=== PATIENT | male | born 1985 | race Two or more races ===

== ENCOUNTER 2017-10-05 06:24 | Observation (INO) | payer OTHER ==
[2017-10-05] MEDS ORDERED: NS 1,000 ML IV ONE (06:50)
[2017-10-05 07:04] LABS: ALANINE AMINOTRANSFERASE 49 IU/L (21-72); ALBUMIN 4.6 g/dL (3.5-5.0); ALKALINE PHOSPHATASE 57 IU/L (38-126); ANION GAP 14 mEq/L (8-16); ASPARTATE AMINOTRANSFERASE 24 IU/L (17-59); BILIRUBIN,TOTAL 1.3 mg/dL (0.1-1.4); BILIRUBIN-CONJUGATED 0.2 mg/dL (0.0-0.5); BILIRUBIN-UNCONJUGATED 1.1 mg/dL (0.0-1.1); CALCIUM 9.6 mg/dL (8.5-10.4); CARBON DIOXIDE 24 mEq/l (22-31); CHLORIDE 104 mEq/L (97-110); CREATININE 0.9 mg/dL (0.7-1.3); GLOMERULAR FILTRATION RATE > 60; GLUCOSE 99 mg/dL (70-100); POTASSIUM 3.9 mEq/L (3.5-5.2); SODIUM 142 mEq/L (134-144); TOTAL PROTEIN 7.1 g/dL (6.3-8.2)
[2017-10-05 07:05] LABS: % IMMATURE GRANULYOCYTES 0.3 % (0.0-1.1); ABSOLUTE IMMATURE GRANULOCYTES 0.04 10^3/uL (0.00-0.10); ADD DIFF? NO; ADD MORPH? NO; ADD SCAN? NO; ATYPICAL LYMPHOCYTE FLAG 0 (0-99); FRAGMENT RBC FLAG 0 (0-99); HEMATOCRIT 44.5 % (40.0-51.0); HEMOGLOBIN 16.1 g/dL (13.7-17.5); LEFT SHIFT FLG 0 (0-99); LIPEMIA HEMOLYSIS FLAG 90 (0-99); MEAN CELL HEMOGLOBIN 31.3 pg (27.9-34.1); MEAN CELL HEMOGLOBIN CONCENTR. 36.2 g/dL (32.4-36.7); MEAN CELL VOLUME 86.4 fL (81.5-99.8); MEAN PLATELET VOLUME 9.9 fL (8.7-11.7); PLATELET CLUMPS FLAG 10 (0-99); PLATELET COUNT 261 10^3/uL (150-400); RED BLOOD CELL COUNT 5.15 10^6/uL (4.40-6.38); RED CELL DISTRIBUTION WIDTH 12.1 % (11.5-15.2)
--- NOTE | 2017-10-05 07:07 | EDPHY ---
H & P Time Seen by Provider: 10/05/17 07:01 HPI/ROS: CHIEF COMPLAINT: Abdominal pain HPI: This patient is a healthy 32 y/o male complaining of abdominal pain onset last night about thirty minutes after eating chicken and rice. The discomfort feels like pressure and gas in his right and left lower quadrants, about the same on each side. He endorses occasional nausea, no vomiting or diarrhea. He has not urinated since the onset of his pain, aside from providing a small sample for UA. He denies any dysuria, hematuria, or difficulty with urination in the past. No fever. No history of abdominal surgery. REVIEW OF SYSTEMS: Aside from elements discussed in the HPI, a comprehensive 10-point review of systems was reviewed and is negative. PMH: Denies. SOCIAL HISTORY: PHYSICAL EXAM: General:Patient is alert, in no acute distress. ENT:Eyes are normal to inspection. ENT inspection normal. Neck: Normal inspection. Full range of motion. Respiratory:No respiratory distress. Breath sounds normal bilaterally. Cardiovascular: Regular rate and rhythm. Strong peripheral pulses. Normal cap refill. Abdomen:The abdomen is moderately distended with diffuse tenderness to palpation in both lower quadrants, worse at midline. There are no peritoneal signs. There are normal bowel sounds. Back: Normal to inspection. No tenderness to palpation. Skin: Normal color. No rash. Warm and dry. Extremities: Right leg is in orthopedic boot due to prior injury. Otherwise normal appearance. Full range of motion. Neuro: Oriented x3. Normal motor function. Normal sensory function. Portions of this note were transcribed by an ED scribe. I personally performed the history, physical exam, and medical decision making; and confirm the accuracy of the information in the transcribed note. Smoking Status: Never smoked Constitutional: Initial Vital Signs Temperature (C) 37 C 10/05/17 06:26 Heart Rate 83 10/05/17 06:26 Respiratory Rate 20 10/05/17 06:26 Blood Pressure 126/78 H 10/05/17 06:26 O2 Sat (%) 96 10/05/17 06:26 O2 Delivery Mode Room Air Allergies/Adverse Reactions: No Known Allergies Allergy (Unverified 10/05/17 06:26) Home Medications: Medication Instructions Recorded NK [No Known Home Meds] 10/05/17 Medical Decision Making Procedures: Limited pelvic ultrasound was conducted for abdominal pain and distension. The bladder was visualized and did not reveal an anechoic area outside of the adjacent urinary bladder. Bladder was distended with urine. The study was felt to be negative for free intraperitoneal fluid The procedure was performed by myself, Dr. Mccullough - Data Points Laboratory Results: Laboratory Results 10/05/17 06:40 10/05/17 06:40 10/05/17 10/05/17 06:40 06:40 WBC 14.97 10^3/uL H 10^3/uL (3.80-9.50) RBC 5.15 10^6/uL 10^6/uL (4.40-6.38) Hgb 16.1 g/dL g/dL (13.7-17.5) Hct 44.5 % % (40.0-51.0) MCV 86.4 fL fL (81.5-99.8) MCH 31.3 pg pg (27.9-34.1) MCHC 36.2 g/dL g/dL (32.4-36.7) RDW 12.1 % % (11.5-15.2) Plt Count 261 10^3/uL 10^3/uL (150-400) MPV 9.9 fL fL (8.7-11.7) Neut % (Auto) 76.5 % H % (39.3-74.2) Lymph % (Auto) 13.9 % L % (15.0-45.0) [place] % (Auto) 8.4 % % (4.5-13.0) Eos % (Auto) 0.6 % % (0.6-7.6) Baso % (Auto) 0.3 % % (0.3-1.7) Nucleat RBC Rel Count 0.0 % % (0.0-0.2) Absolute Neuts (auto) 11.47 10^3/uL H 10^3/uL (1.70-6.50) Absolute Lymphs (auto) 2.08 10^3/uL 10^3/uL (1.00-3.00) Absolute Monos (auto) 1.25 10^3/uL H 10^3/uL (0.30-0.80) Absolute Eos (auto) 0.09 10^3/uL 10^3/uL (0.03-0.40) Absolute Basos (auto) 0.04 10^3/uL 10^3/uL (0.02-0.10) Absolute Nucleated RBC 0.00 10^3/uL 10^3/uL (0-0.01) Immature Gran % 0.3 % % (0.0-1.1) Immature Gran # 0.04 10^3/uL 10^3/uL (0.00-0.10) Sodium 142 mEq/L mEq/L (134-144) Potassium 3.9 mEq/L mEq/L (3.5-5.2) Chloride 104 mEq/L mEq/L (97-110) Carbon Dioxide 24 mEq/l mEq/l (22-31) Anion Gap 14 mEq/L mEq/L (8-16) BUN 13 mg/dL mg/dL (7-23) Creatinine 0.9 mg/dL mg/dL (0.7-1.3) Estimated GFR > 60 Glucose 99 mg/dL mg/dL (70-100) Calcium 9.6 mg/dL mg/dL (8.5-10.4) Total Bilirubin 1.3 mg/dL mg/dL (0.1-1.4) Conjugated Bilirubin 0.2 mg/dL mg/dL (0.0-0.5) Unconjugated Bilirubin 1.1 mg/dL mg/dL (0.0-1.1) AST 24 IU/L IU/L (17-59) ALT 49 IU/L IU/L (21-72) Alkaline Phosphatase 57 IU/L IU/L (38-126) Total Protein 7.1 g/dL g/dL (6.3-8.2) Albumin 4.6 g/dL g/dL (3.5-5.0) Lipase 36 IU/L IU/L (23-300) Departure - Departure Referrals: NONE *PRIMARY CARE P,. [Primary Care Provider] - As per Instructions
--- NOTE | 2017-10-05 07:15 | EDPHY ---
HPI/HX/ROS/PE/MDM Narrative: CHIEF COMPLAINT: Abdominal pain HPI: This patient is a healthy 32 y/o male complaining of abdominal pain onset last night about thirty minutes after eating chicken and rice. The discomfort feels like pressure and gas in his right and left lower quadrants, about the same on each side. He endorses occasional nausea, no vomiting or diarrhea. He has not urinated since the onset of his pain, aside from providing a small sample for UA. He denies any dysuria, hematuria, or difficulty with urination in the past. No fever. No history of abdominal surgery. REVIEW OF SYSTEMS: Aside from elements discussed in the HPI, a comprehensive 10-point review of systems was reviewed and is negative. PMH: Denies. SOCIAL HISTORY: Student at [employer]. Lives in [place]. Single. PHYSICAL EXAM: General:Patient is alert, in no acute distress. ENT:Eyes are normal to inspection. ENT inspection normal. Neck: Normal inspection. Full range of motion. Respiratory:No respiratory distress. Breath sounds normal bilaterally. Cardiovascular: Regular rate and rhythm. Strong peripheral pulses. Normal cap refill. Abdomen:The abdomen is moderately distended with diffuse tenderness to palpation in both lower quadrants, worse at midline. There are no peritoneal signs. There are normal bowel sounds. Back: Normal to inspection. No tenderness to palpation. Skin: Normal color. No rash. Warm and dry. Extremities: Right leg is in orthopedic boot due to prior injury. Otherwise normal appearance. Full range of motion. Neuro: Oriented x3. Normal motor function. Normal sensory function. ED Course: Limited pelvic ultrasound was conducted for abdominal pain and distension. The bladder was visualized and did not reveal an anechoic area outside of the adjacent urinary bladder. Bladder was distended with urine. The study was felt to be negative for free intraperitoneal fluid The procedure was performed by myself, Dr. Mccullough 32 y/o male presents with bilateral lower abdominal pain onset yesterday evening. Exam reveals moderately distended abdomen with diffuse tenderness to palpation in both lower quadrants, worse at midline. Bedside ultrasound reveals bladder distended with urine. I encouraged the patient to try to produce as much urine as possible. IV established. Plan for labs including CBC, chemistries , liver, lipase. Plan to administer 1L IV NS. Plan for CT abdomen/pelvis for further evaluation. Patient was able to produce about 200mL of urine. 09:[address] Star, radiologist. CT abdomen/pelvis positive for appendicitis. Plan to consult with general surgeon security installation technician. Plan to administer 1gm IV Invanz, 30mg IV Toradol. 09:[address] Ibarra, general surgeon. She will consult the patient. Dr. Ibarra accepts admission to med/surg for acute appendicitis. MDM: This patient presents with signs and symptoms of appendicitis, confirmed by CTAP. I see no signs of bowel obstruction, diverticulitis, bowel perforation, severe sepsis or kidney stone. - Data Points Imaging Results: Imaging Impressions Abdomen CT 10/05/17 07:25 Impression: Appendiceal dilatation and hyperemia; this appearance would support a clinical diagnosis of acute appendicitis. Results called and discussed with Erickson Mccullough MD on 10/05/2017 at 9:02. Imaging: Discussed imaging studies w/ chief meter reader Radiologist Laboratory Results: Laboratory Results 10/05/17 06:40 10/05/17 06:40 10/05/17 10/05/17 06:40 06:40 WBC 14.97 10^3/uL H 10^3/uL (3.80-9.50) RBC 5.15 10^6/uL 10^6/uL (4.40-6.38) Hgb 16.1 g/dL g/dL (13.7-17.5) Hct 44.5 % % (40.0-51.0) MCV 86.4 fL fL (81.5-99.8) MCH 31.3 pg pg (27.9-34.1) MCHC 36.2 g/dL g/dL (32.4-36.7) RDW 12.1 % % (11.5-15.2) Plt Count 261 10^3/uL 10^3/uL (150-400) MPV 9.9 fL fL (8.7-11.7) Neut % (Auto) 76.5 % H % (39.3-74.2) Lymph % (Auto) 13.9 % L % (15.0-45.0) [place] % (Auto) 8.4 % % (4.5-13.0) Eos % (Auto) 0.6 % % (0.6-7.6) Baso % (Auto) 0.3 % % (0.3-1.7) Nucleat RBC Rel Count 0.0 % % (0.0-0.2) Absolute Neuts (auto) 11.47 10^3/uL H 10^3/uL (1.70-6.50) Absolute Lymphs (auto) 2.08 10^3/uL 10^3/uL (1.00-3.00) Absolute Monos (auto) 1.25 10^3/uL H 10^3/uL (0.30-0.80) Absolute Eos (auto) 0.09 10^3/uL 10^3/uL (0.03-0.40) Absolute Basos (auto) 0.04 10^3/uL 10^3/uL (0.02-0.10) Absolute Nucleated RBC 0.00 10^3/uL 10^3/uL (0-0.01) Immature Gran % 0.3 % % (0.0-1.1) Immature Gran # 0.04 10^3/uL 10^3/uL (0.00-0.10) Sodium 142 mEq/L mEq/L (134-144) Potassium 3.9 mEq/L mEq/L (3.5-5.2) Chloride 104 mEq/L mEq/L (97-110) Carbon Dioxide 24 mEq/l mEq/l (22-31) Anion Gap 14 mEq/L mEq/L (8-16) BUN 13 mg/dL mg/dL (7-23) Creatinine 0.9 mg/dL mg/dL (0.7-1.3) Estimated GFR > 60 Glucose 99 mg/dL mg/dL (70-100) Calcium 9.6 mg/dL mg/dL (8.5-10.4) Total Bilirubin 1.3 mg/dL mg/dL (0.1-1.4) Conjugated Bilirubin 0.2 mg/dL mg/dL (0.0-0.5) Unconjugated Bilirubin 1.1 mg/dL mg/dL (0.0-1.1) AST 24 IU/L IU/L (17-59) ALT 49 IU/L IU/L (21-72) Alkaline Phosphatase 57 IU/L IU/L (38-126) Total Protein 7.1 g/dL g/dL (6.3-8.2) Albumin 4.6 g/dL g/dL (3.5-5.0) Lipase 36 IU/L IU/L (23-300) Medications Given: Discontinued Medications Ertapenem (Invanz) 1 gm IVP EDNOW ONE PRN Reason: Protocol Stop: 10/05/17 09:05 Last Admin: 10/05/17 09:09 Dose: 1 gm Sodium Chloride (Ns) 1,000 mls @ 0 mls/hr IV EDNOW ONE; Wide Open PRN Reason: Protocol Stop: 10/05/17 06:51 Last Admin: 10/05/17 07:45 Dose: 1,000 mls Ketorolac Tromethamine (Toradol) 30 mg IVP EDNOW ONE Stop: 10/05/17 09:06 Last Admin: 10/05/17 09:09 Dose: 30 mg General Time Seen by Provider: 10/05/17 07:01 Initial Vital Signs: Initial Vital Signs Temperature (C) 37 C 10/05/17 06:26 Heart Rate 83 10/05/17 06:26 Respiratory Rate 20 10/05/17 06:26 Blood Pressure 126/78 H 10/05/17 06:26 O2 Sat (%) 96 10/05/17 06:26 O2 Delivery Mode Room Air Allergies/Adverse Reactions: No Known Allergies Allergy (Verified 10/05/17 11:00) Home Medications: Medication Instructions Recorded Aspirin [Aspirin 325 mg (*)] 325 mg PO DAILY PRN 10/05/17 Ibuprofen [Motrin (*)] 200 mg PO DAILY PRN 10/05/17 Melatonin [Melatonin 3 MG (*)] 3 mg PO HS PRN 10/05/17 Acetaminophen [Tylenol 325mg (*)] 650 mg PO Q4H PRN tab 10/06/17 Departure - Departure Disposition: [facility] Inpatient Acute Clinical Impression: Acute appendicitis Qualifiers: Acute appendicitis type: with localized peritonitis Qualified Code(s): K35.3 - Acute appendicitis with localized peritonitis Condition: Good Report Scribed for: Erickson Mccullough Report Scribed by: Fanny Dee Date of Report: 10/05/17 Time of Report: 07:26 Physician Review and Approval Statement: Portions of this note were transcribed by an ED scribe. I personally performed the history, physical exam, and medical decision making; and confirm the accuracy of the information in the transcribed note.
[2017-10-05] MEDS ORDERED: IOPAMIDOL (ISOVUE-300) 100 ML BTL ONE (07:38)
[2017-10-05] MEDS ORDERED: ERTAPENEM 1 GM VIAL IVP ONE (09:04)
[2017-10-05] MEDS ORDERED: KETOROLAC 30 MG/1 ML SDV IVP ONE (09:05)
[2017-10-05] MEDS ORDERED: ACETAMINOPHEN 325 MG TAB PO PRN (09:20)
[2017-10-05] MEDS ORDERED: ceFAZolin 2 GM in D5W 100 ML IV ONE (09:20)
[2017-10-05] MEDS ORDERED: ONDANSETRON 4 MG/2 ML VIAL IVP PRN (09:21)
[2017-10-05] MEDS ORDERED: ceFAZolin 2 GM/SWFI 2 GM/20 ML SYR IVP ONE (10:00)
[2017-10-05] MEDS ORDERED: LR 1,000 ML IV ONE (10:55)
[2017-10-05] MEDS ORDERED: BUPIVACAINE 0.5% 30 ML SDV ONE (12:28)
--- NOTE | 2017-10-05 12:47 | GHP ---
[f rep st] HISTORY AND PHYSICAL DATE OF ADMISSION: 10/05/2017 CHIEF COMPLAINT: Acute appendicitis. HISTORY OF PRESENT ILLNESS: The patient is a 32-year-old,who presented with abdominal pain x12 hours . It felt like initially pressure and gas in his lower quadrant, however, it became more increasing on the right side. He had occasional nausea but there was no vomiting. He had no diarrhea. He was seen in the emergency room and a CT scan was done that showed acute appendicitis. PAST MEDICAL HISTORY: None, with the exception of a torn Achilles on the right due to soccer. PAST SURGICAL HISTORY: None. 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 His dad lives in [facility]. His mom lives in [facility]. FAMILY HISTORY: No pertinent family history. PHYSICAL EXAM: VITALS: Reviewed. GENERAL: Pleasant, well-nourished, well-groomed man in no acute distress. HEENT: Normocephalic. No gross hearing deficits. Mucous membranes moist. Pupils equal and round. No scleral icterus. LUNGS: Clear to auscultation bilaterally. No increased work of viet athing. CARDIAC: Regular rate. No peripheral edema. ABDOMEN: Tenderness to palpation in the right lower quadrant. He is not distended. Bowel sounds are present. No scarring. SKIN: Warm and dry. No rashes. EXTREMITIES: Right leg in an orthopedic boot, otherwise, normal nails. NEUROLOGIC: Willy sly intact. PSYCHIATRIC: Mood and affect normal. LAB RESULTS: I reviewed the results of his CT scan. IMPRESSION/PLAN: 32-year-old with acute appendicitis. I will take him to the operating room for a l aparoscopic appendectomy. The risks and benefits, including, but not limited to, stroke, heart attac k, , blood clots, infection, bleeding were discussed. He had questions about his bills and we w ill get the financial counselor to discuss this with him. /[id number]/MODL
[2017-10-05] MEDS ORDERED: MIDAZOLAM 2 MG/2 ML VIAL ONE (12:54)
[2017-10-05] MEDS ORDERED: ceFAZolin 2 GM/SWFI 20 ML SYR IVP ONE (12:57)
[2017-10-05] MEDS ORDERED: fentaNYL 100 MCG/2 ML INJ ONE (12:57)
[2017-10-05] MEDS ORDERED: PROPOFOL 200 MG/20 ML VIAL ONE (12:57)
[2017-10-05] MEDS ORDERED: SUCCINYLCHOLINE CHLORIDE*ANESTHESIA ONLY*200 MG/10 ML SYR IVP ONE (12:57)
[2017-10-05] MEDS ORDERED: LIDOCAINE 2% 5 ML SDV ONE (12:57)
[2017-10-05] MEDS ORDERED: MIDAZOLAM 2 MG/2 ML VIAL IVP ONE (12:58)
--- NOTE | 2017-10-05 12:59 | PDANEPAE ---
ANE History of Present Illness Patient presents for lap nina FIGUEREDO Past Medical History - Cardiovascular History Hx Hypertension: No Hx Arrhythmias: No Hx Chest Pain: No Hx Coronary Artery / Peripheral Vascular Disease: No Hx CHF / Valvular Disease: No Hx Palpitations: No - Pulmonary History Hx COPD: No Hx Asthma/Reactive Airway Disease: No Hx Recent Upper Respiratory Infection: No Hx Oxygen in Use at Home: No Hx Sleep Apnea: No - Neurologic History Hx Cerebrovascular Accident: No Hx Seizures: No Hx Dementia: No - Endocrine History Hx Diabetes: No - Renal History Hx Renal Disorders: No - Liver History Hx Hepatic Disorders: No - Neurological & Psychiatric Hx Hx Neurological and Psychiatric Disorders: No - Cancer History Hx Cancer: No - Congenital Disorder History Hx Congenital Disorders: No - GI History Hx Gastrointestinal Disorders: No - Surgical History Prior Surgeries: ULCER ABD WHILE BABY ANE Review of Systems Review of Systems: - Exercise capacity METS (RN): 4 METS ANE Patient History - Allergies Allergies/Adverse Reactions: No Known Allergies Allergy (Verified 10/05/17 11:00) - Home Medications Home Medications: Aspirin [Aspirin 325 mg (*)] 325 mg PO DAILY PRN 10/05/17 [Last Taken 10/04/17] Ibuprofen [Motrin (*)] 200 mg PO DAILY PRN 10/05/17 [Last Taken 10/04/17] Melatonin [Melatonin 3 MG (*)] 3 mg PO HS PRN 10/05/17 [Last Taken 10/04/17] - NPO status NPO Status: no food or drink >8 hours NPO Since - Liquids (Date): 10/04/17 NPO Since - Liquids (Time): 22:00 NPO Since - Solids (Date): 10/04/17 NPO Since - Solids (Time): 18:00 - Anes Hx Anes Hx: no prior problems - Smoking Hx Smoking Status: Never smoked - Family Anes Hx Family Hx Anesthesia Complications: NONE ANE Labs/Vital Signs - Labs Result Diagrams: 10/05/17 06:40 10/05/17 06:40 - Vital Signs Blood Pressure: 113/70 Heart Rate: 68 Respiratory Rate: 17 O2 Sat (%): 96 Height: 172.72 cm Weight: 75.75 kg ANE Physical Exam - Airway Neck exam: FROM Mallampati Score: Class 1 - Pulmonary Pulmonary: no respiratory distress - Cardiovascular Cardiovascular: regular rate and rhythym - ASA Status ASA Status: I, E ANE Anesthesia Plan Anesthesia Plan: general endotracheal anesthesia (RBA discussed)
[2017-10-05] MEDS ORDERED: ROCURONIUM 50 MG/5 ML VIAL ONE (13:00)
[2017-10-05] MEDS ORDERED: ONDANSETRON 4 MG/2 ML VIAL ONE (13:16)
[2017-10-05] MEDS ORDERED: DEXAMETHASONE 4 MG/ML VIAL ONE (13:16)
[2017-10-05] MEDS ORDERED: SUGAMMADEX SODIUM 500 MG/5 ML VIAL IVP ONE (13:28)
[2017-10-05] MEDS ORDERED: LR 500 ML IV PRN (13:29)
[2017-10-05] MEDS ORDERED: NALOXONE HCL 0.4 MG/ML INJ IVP PRN (13:29)
[2017-10-05] MEDS ORDERED: HYDROCODONE/APAP 5/325 TAB PO PRN ×2 (13:29→13:35)
[2017-10-05] MEDS ORDERED: fentaNYL 100 MCG/2 ML INJ IVP PRN (13:29)
[2017-10-05] MEDS ORDERED: OXYCODONE/APAP 5/325 TAB PO PRN (13:29)
[2017-10-05] MEDS: KETOROLAC 15 MG/1 ML SDV IVP PRN ×2 (13:30→22:22)
--- NOTE | 2017-10-05 13:37 | POSTOPPROG ---
Post Op Note Date of Operation: 10/05/17 Surgeon: Summer Ibarra Anesthesiologist: sujata Anesthesia: GET(General Endotracheal) Pre-op Diagnosis: acute appy Post-op Diagnosis: same Indication: 32 yo with appy Procedure: lap appy Findings: inflamed appendix Inf/Abcess present in the surg proc area at time of surgery?: No EBL: Minimal Specimen(s): appendix
--- NOTE | 2017-10-05 13:47 | POSTANESTH ---
Post Anesthetic Evaluation Cardiovascular Status: Similar to Pre-Op Cond Respiratory Status: Similar to Pre-op Cond. Level of Consciousness/Mental Status: Can Participate in Eval Pain Control: Adequate, Prn Tx Ordered Nausea/Vomiting Control: Adequate, Prn Tx Ordered Complications Possibly Related to Anesthesia: None Noted
[2017-10-05 16:36] VITALS: RESP 16
[2017-10-06 08:08] VITALS: TEMP 98
[2017-10-06] MEDS: KETOROLAC 15 MG/1 ML SDV IVP PRN (08:19)
--- NOTE | 2017-10-06 08:55 | GOP ---
[f rep st] OPERATIVE REPORT DATE OF OPERATION: 10/05/2017 SURGEON: Summer Ibarra MD ANESTHESIA: General. ANESTHESIOLOGIST: Guilherme Willson MD. PREOPERATIVE DIAGNOSIS: Acute appendicitis. POSTOPERATIVE DIAGNOSIS: Acute appendicitis. PROCEDURE PERFORMED: Laparoscopic appendectomy. FINDINGS: SPECIMENS: Appendix. ESTIMATED BLOOD LOSS: Minimal. INDICATIONS: The patient is a 32-year-old, who presented with abdominal pain. CT scan consistent wi th acute appendicitis. DESCRIPTION OF PROCEDURE: Patient was brought into the operating room, placed supine on the table, a nd general anesthesia was administered. His abdomen was prepped and draped in the usual sterile [facility] ion. I infiltrated all sites with 0.5% Marcaine prior to making incisions. I made an incision by hi s umbilicus. I elevated it. I inserted the Veress needle. It passed the hanging drop test. His ab domen insufflated easily to a pressure of 15 mmHg. Under direct vision, I placed a 5 mm suprapubic t rocar, and a 10 mm trocar in the left lower quadrant. I explored his abdomen. There was a very infl luisa appendix. I lifted it and divided the mesoappendix with the Harmonic Scalpel. I divided the ba se with an Endo-ROMINA 45 white load. I placed it in an EndoCatch bag and retrieved it via the 10 mm tr ocar. There was no bleeding at the staple line. I explored his abdomen, and no additional injuries were noted. I removed the ports under direct vision, and allowed the abdomen to desufflate. The fas girma at the 10 mm trocar site was closed with 0 Vicryl. Skin closed with 4-0 Monocryl. Dermabond celia lied. He was awakened in the operating room, extubated, transferred to PACU in stable condition. /[id number]/MODL
--- NOTE | 2017-10-06 10:25 | ASMTCMCOM ---
CM Note CM Note Notes: Pt s/p lap appy. He is a [employer] student. Discharging home today with no CM needs. Date Signed: 10/06/2017 10:24 AM Electronically Signed By:SEMAJ Shepard
[2017-10-06 12:03] VITALS: BP 122/63; PULSE 76; O2SAT 94
--- NOTE | 2017-10-06 15:12 | ASDISCHSUM ---
Discharge Information Plan Status:Home with No Needs Medically Cleared to Leave:10/05/2017 Discharge Date:10/06/2017 01:47 PM CM D/C Disposition:Home, Routine, Self-Care ADT D/C Disposition:Home, Routine, Self-Care Projected Discharge Date:10/06/2017 01:47 PM Transportation at D/C:Family Discharge Delay Reason: Follow-Up Date:10/06/2017 01:47 PM Discharge Slot: Final Diagnosis: Placement Information Patient Contact Information Contact Name:JUDAH Relationship: Address: Home Phone: Work Phone: City: Alternate Phone: State/[place] Code: Email: Financial Information Financial Class:HMO and PPO Plans Primary Plan Desc:[employer] Primary Plan Number:[id number] Secondary Plan Desc: Secondary Plan Number: Assessment Information [facility] CM Progress Note CM Note CM Note Notes: Pt s/p bibi wood. He is a [employer] student. Discharging home today with no CM needs. Date Signed: 10/06/2017 10:24 AM Electronically Signed By:SEMAJ Shepard Intervention Information
--- NOTE | 2017-10-06 16:31 | SOAPPROG ---
SOAP Progress Note Assessment/Plan: Assessment/Plan: 32yo M POD#1 s/p lap appy for acute appendicitis Pain controlled Regular diet Ambulating independently Dispo: DC home today. F/u 2 weeks. Call with worsening symptoms, questions or concerns. S: feeling well. ate breakfast. pain controlled. O: laying in bed, comfortable, NAD No increased WOB Abd soft, nondistended nontender. Incisions CDI Plan: 10/06/17 16:25 Objective: Vital Signs Temp Pulse Resp BP Pulse Ox 36.7 C 76 16 122/63 H 94 10/06/17 08:00 10/06/17 12:00 10/06/17 12:00 10/06/17 12:00 10/06/17 12:00 10/05/17 10/06/17 10/07/17 05:59 05:59 05:59 Intake Total 2460 Output Total 5 Balance 2455 ICD10 Worksheet Patient Problems: Problems Problem Status Onset Acute appendicitis Acute
== END 2017-10-06 13:47 | disposition home or self-care (01) ==
LOC: F1N 11:08 → F3N 14:22
PROVIDERS: ADMIT Surgery; ATTEND Surgery
PROC: 0DTJ4ZZ Resection of Appendix, Percutaneous Endoscopic Approach (ICD-10-PCS; principal; 2017-10-05 13:15)
DX: K35.80 Unspecified acute appendicitis (principal)
CPT/HCPCS: 44970; 74177; G0378; J0330; J0690; J1100; J1335; J1885; J2250; J2405; J2704; J3010; Q9967